=== PATIENT | female | born 1995 | race Caucasian/White ===

== ENCOUNTER 2022-04-24 05:50 | Inpatient (IN) | payer BC ==
--- NOTE | 2022-04-23 07:51 | P.HPOB ---
History of Present Illness H&P Date: 04/23/22 Chief Complaint: Requested induction of labor This patient is a pleasant 26-year-old 1 para 0 female estimated date of confinement 04/29/2022 estimated gestational age 39-2/7 weeks who presents to labor and delivery for requested induction of labor. Patient has been followed for large for gestational age however most recent ultrasound showed the baby 7 lbs. 11 oz. Patient's otherwise has been uncomplicated. Review of Systems Genitourinary: Reports Menstruation: Reports amenorrhea Past Medical History Past Medical History: No Reported History History of Any Multi-Drug Resistant Organisms: None Reported Past Surgical History: No Surgical Hx Reported Past Anesthesia/Blood Transfusion Reactions: No Reported Reaction Past Psychological History: No Psychological Hx Reported Smoking Status: Never smoker Past Alcohol Use History: None Reported Past Drug Use History: None Reported Medications and Allergies Allergies Allergy/AdvReac Type Severity Reaction Status Date / Time amoxicillin AdvReac Vomiting Verified 04/23/22 07:49 Exam - OBG Physical Exam Abdomen: bowel sounds normal, no diffuse tenderness, no bruit present, no guarding noted, no hepatomegaly, no splenomegaly, no mass Vulva: both: normal Vagina: normal moisture, no discharge Cervix: no lesion (Cervix is 1-2 cm soft -2 station), no discharge Uterus: enlarged (Fundal height 40 cm) Results blood work shows she is B+, rubella immune, RPR nonreactive, HIV is nonreactive, hepatitis B is negative, group B strep was negative, most recent ultrasound showed vertex 7 lbs. 11 oz. Assessment and Plan Assessment: This is a pleasant 26-year-old 1 para 0 female 39-2/7 weeks gestation admitted to labor and delivery for requested induction of labor. Plan is induction of labor and anticipate vaginal delivery. (1) 39 weeks gestation of Status: Acute Code(s): Z3A.39 - 39 WEEKS GESTATION OF SNOMED Code(s): 79038171 (2) Elective induction of labor planned Status: Acute Code(s): WOO4270 - SNOMED Code(s): 227168422
[2022-04-24] MEDS ORDERED: TERBUTALINE 1 MG/ML VIAL SQ PRN (06:07)
[2022-04-24] MEDS ORDERED: LIDOCAINE 0.5% (PF) 5 MG/ML (50 ML SDV) SQ PRN (06:07)
[2022-04-24] MEDS ORDERED: METHYLERGONOVINE 0.2 MG/ML 1 ML AMP IM PRN (06:07)
[2022-04-24] MEDS ORDERED: CARBOPROST TROMETHAMINE 250 MCG/ML 1 ML AMP IM PRN (06:07)
[2022-04-24] MEDS ORDERED: OXYTOCIN 10 UNIT/ML 1 ML VIAL IM PRN (06:07)
[2022-04-24] MEDS ORDERED: OXYTOCIN 30 UNITS/500 ML NS 30 UNIT in SALINE 1 500ML.BAG IV SCH ×2 (06:07→20:15)
[2022-04-24 06:32] LABS: Basophils % (A) 0 %; Eosinophils # (A) 0.1 k/uL (0-0.7); Eosinophils % (A) 1 %; HGB 10.9 gm/dL (11.4-16.0); Lymphocytes # (A) 1.8 k/uL (1.0-4.8); Lymphocytes % (A) 20 %; MCH 33.5 pg (25.0-35.0); MCHC 35.1 g/dL (31.0-37.0); MCV 95.4 fL (80.0-100.0); Mean Platelet Volume 9.1; Monocytes # (A) 0.7 k/uL (0-1.0); Monocytes % (A) 7 %; Neutrophils # (A) 6.2 k/uL (1.3-7.7); Neutrophils % (A) 68 %; Platelet Count 346 k/uL (150-450); RBC 3.25 m/uL (3.80-5.40); RDW 13.9 % (11.5-15.5); WBC 9.1 k/uL (3.8-10.6)
[2022-04-24] MEDS: LACTATED RINGERS 1,000 ML IV SCH (07:05)
[2022-04-24] MEDS ORDERED: fentaNYL (PF) 50 MCG/ML 5 ML AMP ONE (12:45)
[2022-04-24] MEDS ORDERED: SODIUM CHLORIDE 0.9% 100 ML BAG ONE (12:45)
[2022-04-24] MEDS ORDERED: ROPIVACAINE 5MG/ML 20ML VIAL ONE (12:45)
--- NOTE | 2022-04-24 20:06 | P.PROBDLV ---
Vaginal Delivery Note - . Vaginal Delivery Note: Normal vaginal delivery viable male infant Apgars 5, 8, and 9. At 1926 hrs. Please see dictated H&P for intimate details of this patient's admission. Brief summary this is a pleasant 26-year-old 1 para 0 female 39-2/7 weeks gestation admitted to labor and delivery for induction of labor. On admission patient is 3 cm dilated has artificial rupture membranes for clear fluid. Labor progresses normally she does get an epidural for pain control. Patient gets to complete she pushes for approximately just over 2 hours. Patient is exhausted and therefore a second-degree midline episiotomy is made and with the next push we have controlled delivery of the infant's head over the perineum. Mouth and nares are bulb suctioned. There is there is a nuchal cord 1 which is reduced. With gentle downward traction we then have deliver the anterior and posterior shoulder and rest this 's body. This is a vigorous viable male Apgars are 5, 8, and 9. He does respond to stimulation with spontaneous cry. Umbilical cords doubly clamped and cut infant is late on the mother's abdomen then taken to warmer for attendance. Placenta spontaneously delivered intact. Inspection of the perineum shows a 1 cm disruption of the rectal mucosa from the anal verge and complete disruption of the rectal sphincter consistent with a fourth degree laceration. This time an resident assistant is brought in and a Gelpi. The rectal mucosa is easily visualized and closed with 4-0 Vicryl running fashion 2 layers. Rectal exam confirms good reapproximation. 2 Allis clamps are placed across the rectal sheath. Using a 3-0 Vicryl interrupted 4 the rectal muscle and rectal sheath is reapproximated. Excellent reapproximation is noted. The rest of the laceration is repaired with 3-0 Vicryl in a running fashion. Final rectal exam is done and shows good reapproximation without defects. All counts are correct 3. There are no complications. Infant and mother are stable in delivery room. A dose of antibiotics due to the fourth degree tear.
[2022-04-24] MEDS ORDERED: HYDROCORTISONE 2.5% RECTAL CREAM 30 GM TUBE RECTAL PRN (20:07)
[2022-04-24] MEDS ORDERED: diphenhydrAMINE 50 MG/ML 1 ML VIAL IVP PRN (20:07)
[2022-04-24] MEDS ORDERED: SIMETHICONE 80 MG CHEWABLE PO PRN (20:07)
[2022-04-24] MEDS ORDERED: diphenhydrAMINE 25 MG CAP PO PRN (20:07)
[2022-04-24] MEDS ORDERED: BENZOCAINE/MENTHOL SPRAY 1 GM/SPRAY AEROSOL TOPICAL PRN (20:07)
[2022-04-24] MEDS ORDERED: LANOLIN CREAM 5 GM TUBE TOPICAL PRN (20:07)
[2022-04-24] MEDS ORDERED: ZOLPIDEM 5 MG TAB PO PRN (20:07)
[2022-04-24] MEDS: IBUPROFEN 600 MG TAB PO PRN (20:24)
[2022-04-24] MEDS: DOCUSATE 100 MG CAP PO SCH (20:50)
[2022-04-25] MEDS: LACTATED RINGERS 1,000 ML IV SCH (00:52)
[2022-04-25] MEDS: ACETAMINOPHEN TAB 325 MG TAB PO PRN ×3 (01:28→18:24)
[2022-04-25] MEDS: IBUPROFEN 600 MG TAB PO PRN ×3 (04:54→22:03)
[2022-04-25 06:32] LABS: Basophils % (A) 0 %; Eosinophils # (A) 0.1 k/uL (0-0.7); Eosinophils % (A) 0 %; HCT 26.3 % (34.0-46.0); Lymphocytes # (A) 1.6 k/uL (1.0-4.8); Lymphocytes % (A) 9 %; MCH 31.9 pg (25.0-35.0); MCHC 33.9 g/dL (31.0-37.0); MCV 94.1 fL (80.0-100.0); Mean Platelet Volume 9.1; Monocytes # (A) 0.9 k/uL (0-1.0); Monocytes % (A) 5 %; Neutrophils # (A) 15.2 k/uL (1.3-7.7); Neutrophils % (A) 85 %; Platelet Count 275 k/uL (150-450); RDW 13.3 % (11.5-15.5)
[2022-04-25 06:41] LABS: HGB 8.9 gm/dL (11.4-16.0)
--- NOTE | 2022-04-25 07:57 | P.PNOBGVD ---
Subjective - Subjective Patient reports: Reports appetite normal, Reports voiding normally, Reports pain well controlled, Reports ambulating normally : doing well Objective - Latest Vital Signs Latest vital signs: Vital Signs Temp Pulse Resp BP Pulse Ox 04/25/22 04:00 98.2 F 94 18 108/67 97 04/25/22 00:00 98.5 F 79 18 128/79 98 04/24/22 22:00 97.7 F 84 18 121/72 100 04/24/22 21:30 91 18 132/64 100 04/24/22 21:00 91 126/88 100 04/24/22 20:45 78 121/65 100 04/24/22 20:30 90 134/60 100 04/24/22 20:15 90 114/58 04/24/22 20:00 98.0 F 105 H 18 109/77 100 Intake and Output 04/24/22 04/25/22 04/25/22 22:59 06:59 14:59 Intake Total 24.933 Output Total 235 Balance -210.067 Intake: Intake, IV Titration 24.933 Amount Oxytocin 30 Units/500 ml 24.933 Ns 30 unit In Saline 1 500ml.bag @ Per Protocol IV .Q0M [facility] Rx#:[id number] Output: Urine 100 Output, Quantitative 135 Blood Loss Other: # Voids 1 - Exam Lungs: bilateral: normal Chest: Normal S1, Normal S2 Extremities: Present: normal Abdomen: Present: normal appearance, soft Uterus: Present: normal, firm - Labs Labs: Abnormal Lab Results - Last 24 Hours (Table) 04/25/22 Range/Units 06:14 WBC 18.0 H (3.8-10.6) k/uL RBC 2.80 L (3.80-5.40) m/uL Hgb 8.9 L D (11.4-16.0) gm/dL Hct 26.3 L (34.0-46.0) % Neutrophils # 15.2 H (1.3-7.7) k/uL Assessment and Plan Assessment: day #1. Patient is resting without complaints. Vital signs are stable and she is afebrile. Uterus is firm nontender she's having normal lochia. Hemoglobin was 8.9. Plan today is to continue routine care. I am going to recheck a CBC tomorrow and start her on some iron therapy. (1) 39 weeks gestation of Current Visit: No Status: Acute Code(s): Z3A.39 - 39 WEEKS GESTATION OF SNOMED Code(s): 04426314 (2) Elective induction of labor planned Current Visit: No Status: Acute Code(s): [id number] - SNOMED Code(s): 078835156
[2022-04-25] MEDS ORDERED: SENNOSIDES-DOCUSATE SODIUM 1 EACH TAB PO SCH (08:00)
[2022-04-25] MEDS: DOCUSATE 100 MG CAP PO SCH ×2 (08:22→22:03)
[2022-04-25] MEDS: IRON PS CMPLX/VIT B12/FA 1 EACH CAP PO SCH (09:18)
[2022-04-26] MEDS: IBUPROFEN 600 MG TAB PO PRN ×2 (03:07→09:12)
[2022-04-26] MEDS: ACETAMINOPHEN TAB 325 MG TAB PO PRN (05:32)
[2022-04-26 06:50] LABS: Basophils % (A) 0 %; Eosinophils # (A) 0.2 k/uL (0-0.7); Eosinophils % (A) 1 %; HCT 27.3 % (34.0-46.0); HGB 9.4 gm/dL (11.4-16.0); Lymphocytes # (A) 1.7 k/uL (1.0-4.8); Lymphocytes % (A) 12 %; MCH 33.3 pg (25.0-35.0); MCHC 34.3 g/dL (31.0-37.0); MCV 97.2 fL (80.0-100.0); Mean Platelet Volume 8.7; Monocytes # (A) 0.8 k/uL (0-1.0); Monocytes % (A) 5 %; Neutrophils # (A) 11.1 k/uL (1.3-7.7); Neutrophils % (A) 80 %; Platelet Count 289 k/uL (150-450); RBC 2.81 m/uL (3.80-5.40)
--- NOTE | 2022-04-26 06:51 | P.PNOBGVD ---
Subjective - Subjective Patient reports: Reports appetite normal, Reports voiding normally, Reports pain well controlled, Reports ambulating normally : doing well Objective - Latest Vital Signs Latest vital signs: Vital Signs Temp Pulse Resp BP Pulse Ox 04/25/22 23:59 98.1 F 93 18 117/73 100 04/25/22 16:00 98.1 F 90 16 117/77 100 04/25/22 08:20 97.7 F 86 16 104/64 99 Intake and Output 04/25/22 04/25/22 04/26/22 14:59 22:59 06:59 Other: # Voids 1 2 2 - Exam Lungs: bilateral: normal Chest: Normal S1, Normal S2 Extremities: Present: normal Abdomen: Present: normal appearance, soft Uterus: Present: normal, firm - Labs Labs: Abnormal Lab Results - Last 24 Hours (Table) 04/26/22 Range/Units 06:05 WBC 14.0 H (3.8-10.6) k/uL RBC 2.81 L (3.80-5.40) m/uL Hgb 9.4 L (11.4-16.0) gm/dL Hct 27.3 L (34.0-46.0) % Neutrophils # 11.1 H (1.3-7.7) k/uL Assessment and Plan Assessment: Post day #2. Patient is resting without complaints and wishes to go home. Vital signs are stable she's afebrile. CBC is pending at the time of this dictation. Plan today is to continue routine care discharge home later this morning. (1) 39 weeks gestation of Current Visit: No Status: Acute Code(s): Z3A.39 - 39 WEEKS GESTATION OF SNOMED Code(s): 18577291 (2) Elective induction of labor planned Current Visit: No Status: Acute Code(s): [id number] - SNOMED Code(s): 864259953
--- NOTE | 2022-04-26 07:00 | P.DS ---
Providers Date of admission: 04/24/22 05:50 Expected date of discharge: 04/26/22 Attending physician: Dayne Martin Primary care physician: Stated None - Discharge Diagnosis(es) (1) 39 weeks gestation of Current Visit: No Status: Acute (2) Elective induction of labor planned Current Visit: No Status: Acute Hospital Course: Please see dictated H&P for intimate details of this patient's admission. In brief summary this is a pleasant 26-year-old 1 para 0 female 39-2/7 weeks gestation who is admitted to labor and delivery for induction of labor. Patient is admitted she undergoes vaginal delivery of viable male . The see dictated delivery note. Delivery is complicated by a fourth degree laceration which is repaired at the time of delivery. patient is given a dose of antibiotics for this reason placed on stool softeners. She does very well and on day #2 felt be stable for discharge home follow up with me in 6 weeks. Patient was given restrictions regard to activities and her fourth degree laceration. Procedures: Normal vaginal delivery Patient Condition at Discharge: Good Plan - Discharge Summary New Discharge Prescriptions: New Docusate [Colace] 100 mg PO BID 30 Days #60 cap Ibuprofen [Motrin] 600 mg PO Q6HR PRN #40 tab PRN Reason: Mild Pain (Scale 1 To 3) No Action Ferrous Sulfate [Slow Fe] 142 mg PO DAILY Vit No.179/Iron/Folic [ Tablet] 1 each PO DAILY Discharge Medication List Ferrous Sulfate [Slow Fe] 142 mg PO DAILY 04/24/22 [History] Vit No.179/Iron/Folic [ Tablet] 1 each PO DAILY 04/24/22 [History] Docusate [Colace] 100 mg PO BID 30 Days #60 cap 04/26/22 [Rx] Ibuprofen [Motrin] 600 mg PO Q6HR PRN #40 tab 04/26/22 [Rx] Follow up Appointment(s)/Referral(s): Dayne Martin MD [STAFF PHYSICIAN] - 06/09/22 11:15 am Patient Instructions/Handouts: Vaginal Delivery (DC), Perineal Tear with Delivery (DC) Activity/Diet/Wound Care/Special Instructions: No intercourse or anything per vagina for 6 weeks. Please call if any fever, chills, excessive vaginal bleeding, and/or abdominal pain. Please take a stool softener as needed as directed. Discharge Disposition: HOME SELF-CARE
[2022-04-26] MEDS: IRON PS CMPLX/VIT B12/FA 1 EACH CAP PO SCH (09:12)
[2022-04-26] MEDS: DOCUSATE 100 MG CAP PO SCH (09:12)
[2022-04-26 09:17] VITALS: BP 110/73; PULSE 85; RESP 16; TEMP 97.8
== END 2022-04-26 11:45 | disposition home or self-care (01) | DRG 768 ==
LOC: 4FBP 05:50
PROVIDERS: ADMIT Obstetrics & Gynecology; ATTEND Obstetrics & Gynecology
PROC: 00HU33Z Insertion of Infusion Device into Spinal Canal, Percutaneous Approach (ICD-10-PCS; principal; 2022-04-24)
PROC: 0W8NXZZ Division of Female Perineum, External Approach (ICD-10-PCS; principal; 2022-04-24)
PROC: 10907ZC Drainage of Amniotic Fluid, Therapeutic from Products of Conception, Via Natural or Artificial Opening (ICD-10-PCS; principal; 2022-04-24)
PROC: 3E033VJ Introduction of Other Hormone into Peripheral Vein, Percutaneous Approach (ICD-10-PCS; principal; 2022-04-24)
PROC: 0DQP0ZZ Repair Rectum, Open Approach (ICD-10-PCS; principal; 2022-04-24)
PROC: 10E0XZZ Delivery of Products of Conception, External Approach (ICD-10-PCS; principal; 2022-04-24)
PROC: 3E0R3NZ Introduction of Analgesics, Hypnotics, Sedatives into Spinal Canal, Percutaneous Approach (ICD-10-PCS; principal; 2022-04-24)
DX: O75.81 Maternal exhaustion complicating labor and delivery (principal); O70.3 Fourth degree perineal laceration during delivery; O69.81X0 Labor and delivery complicated by cord around neck, without compression, not applicable or unspecified; Z88.0 Allergy status to penicillin; Z3A.39 39 weeks gestation of pregnancy; Z37.0 Single live birth
CPT/HCPCS: 85025; 86850; 86900; 86901